=== PATIENT | male | born 1945 | race Caucasian/White ===

== ENCOUNTER 2020-03-31 12:14 | Outpatient (REF) | payer OTHER, SELFPAY | END 2020-03-31 12:15 | disposition home or self-care (01) | LOC: HO.LAB 12:14 | PROVIDERS: Visit Provider Internal Medicine | DX: Z20.828 Contact with and (suspected) exposure to other viral communicable diseases (principal) | CPT/HCPCS: C9803; U0003 ==

== ENCOUNTER 2020-04-14 11:54 | Outpatient (REF) | payer OTHER, SELFPAY | END 2020-04-14 11:55 | disposition home or self-care (01) | LOC: HO.LAB 11:54 | PROVIDERS: Visit Provider Internal Medicine | DX: Z20.828 Contact with and (suspected) exposure to other viral communicable diseases (principal) | CPT/HCPCS: C9803; U0003 ==